=== PATIENT | male | born 2000 | race Caucasian/White ===

== ENCOUNTER 2021-12-30 14:06 | Outpatient (CLI) | payer BC, SELFPAY ==
[2021-12-30 15:20] LABS: SARS-CoV-2 RNA PCR Negative (Negative)
== END 2021-12-30 14:07 | disposition home or self-care (01) ==
LOC: CHSLAB 14:12
PROVIDERS: PCP Family Medicine; Visit Provider Family Medicine
DX: J06.9 Acute upper respiratory infection, unspecified (principal); Z20.822 Contact with and (suspected) exposure to COVID-19
CPT/HCPCS: C9803; U0003; U0005